=== PATIENT | male | born 1975 | race Caucasian/White ===

== ENCOUNTER 2016-08-05 20:13 | Emergency (ER) | payer SELFPAY ==
[2016-08-05] MEDS ORDERED: ONDANSETRON 4 MG/2 ML VIAL IVP ONE (21:19)
[2016-08-05] MEDS ORDERED: NS 1,000 ML IV ONE (21:19)
[2016-08-05 21:21] VITALS: RESP 16
--- NOTE | 2016-08-05 21:21 | EDPHY ---
H & P Stated Complaint: flu SnS for 3 weeks, out of psych and HTN meds for 3 weeks HPI/ROS: CHIEF COMPLAINT: Headache, malaise, confusion, sinus pain HISTORY OF PRESENT ILLNESS: several weeks duration of "flu-like" symptoms. Gradual onset. Constant duration. He feels that it is possibly related to the lack of his multiple medications as he lost his insurance. The headache is primarily frontal and over the maxillary regions. There is no neck pain or stiffness. No fever or chills. He also reports some cough, congestion, runny nose, body aches and generalized malaise. He has no chest pain or shortness of breath. No urinary complaints. No abdominal pain. No unilateral complaints. No altered mentation per the family member at bedside. No particular modifying factors for this despite taking multiple vedx-ast-ewcbiyo medications. REVIEW OF SYSTEMS: Ten systems reviewed and are negative unless otherwise noted in the HPI EXAMINATION General Appearance: Alert, no distress Head: normocephalic, atraumatic . No outward signs of trauma. Eyes: Pupils equal and round, no conjunctival pallor or injection ENT, Mouth: Mucous membranes moist . Uvula midline. No erythema, edema or lesions. Tenderness to palpation of the frontal and maxillary sinuses. Neck: Normal inspection, supple, non-tender . Respiratory: Lungs are clear to auscultation Cardiovascular: Regular rate and rhythm Gastrointestinal: Abdomen is soft and nontender Back: non-tender, no bony abnormalities Neurological: A&O, Cranial nerves 2-12 grossly intact. nonfocal, Strength 5/ 5 in all limbs. Conversation appropriate.normal gait Skin: Warm and dry, no rash Extremities: Nontender, no pedal edema Psychiatric: Mood and affect normal DIFFERENTIAL DIAGNOSES: Including but not limited to influenza, mono, sinusitis, bronchitis, dehydration, hypokalemia, hyponatremia MDM: 9:20 p.m. multiple vague complaints without any focal complaints aside from sinusitis. He has no chest pain or shortness of breath. He does have a cough. He has a mild headache but only in the frontal maxillary sinuses. No neck pain or stiffness. No fever chills. He has auto discontinued his medications due to lack of insurance which is possibly contributing to his complaints. He is well- appearing in no acute distress. Does have mildly elevated blood pressure which we will monitor. Laboratory studies are pending at this time. As well as CT scan and chest x-ray. 10:30pm Notified by Radiology that the CT of the head reveals only a maxillary sinusitis. No acute findings of the brain parenchyma or otherwise. 11:30 p.m. laboratory studies, CT scan chest x-ray are all within normal limits. No acute findings of any kind. He is feeling much better. His blood pressure is well maintained. We had a very lengthy discussion regarding his chronic medications that he has been off of. Given the high blood pressure and his history of depression, I will resume atenolol Lexapro. additionally I will treat him for sinusitis with Augmentin and Flonase, he can take over-the- counter pseudoephedrine as needed. He has instructions to follow up with [facility] and he will attempt to see his primary care physician when he resumes his insurance. He is instructed to return to the ER should symptoms worsen, he has any weakness, altered mental status or syncope. He and his significant other at bedside are comfortable with this plan. SUPERVISION: This patient was independently evaluated without the aide of supervising physician. Source: Patient, Family Exam Limitations: No limitations - Personal History Current Tetanus/Diphtheria Vaccine: Unsure Current Tetanus Diphtheria and Acellular Pertussis (TDAP): Unsure - Medical/Surgical History Hx Asthma: No Hx Chronic Respiratory Disease: No Hx Diabetes: No Hx Cardiac Disease: Yes Hx Renal Disease: No Hx Cirrhosis: No Hx Alcoholism: No Hx HIV/AIDS: No Hx Splenectomy or Spleen Trauma: No Other PMH: PMH: ADHD, HTN, anxiety, NOHEMY, back injury. PSH: none - Social History Smoking Status: Light smoker Constitutional: Initial Vital Signs Temperature (C) 98.2 F 08/05/16 20:22 Heart Rate 96 08/05/16 20:22 Respiratory Rate 14 08/05/16 20:22 Blood Pressure 166/115 H 08/05/16 20:22 O2 Sat (%) 96 08/05/16 20:22 O2 Delivery Mode Room Air Allergies/Adverse Reactions: lisinopril Allergy (Unverified 05/04/16 12:57) Home Medications: Medication Instructions Recorded Adderall 10 mg Tablet TID 08/05/16 Amlodipine Besylate 08/05/16 Amoxicillin/Clavulanate Pot 875 mg PO BID #14 tab 01/25/17 [Augmentin 875 MG TAB (*)] Atenolol 08/05/16 Atenolol 50 mg PO DAILY #30 tablet 08/05/16 Ativan 1 mg 08/05/16 CLONAZEPAM 08/05/16 Escitalopram Oxalate [Lexapro] 10 mg PO DAILY #30 tab 08/05/16 Flexeril 08/05/16 Fluticasone Nasal [Flonase Nasal 1 sprays NASAL DAILY #1 mdi 08/05/16 [place] (RX)] Hydrochlorothiazide 08/05/16 Lexapro 20 mg 08/05/16 Percocet 7.5-325 mg Tablet 08/05/16 ZYRTEC 08/05/16 Medical Decision Making - Data Points Laboratory Results: Laboratory Results 08/05/16 21:00 08/05/16 21:00 08/05/16 08/05/16 21:20 21:00 WBC 7.95 10^3/uL (3.80-9.50) RBC 4.78 10^6/uL (4.40-6.38) Hgb 16.2 g/dL (13.7-17.5) Hct 44.4 % (40.0-51.0) MCV 92.9 fL (81.5-99.8) MCH 33.9 pg (27.9-34.1) MCHC 36.5 g/dL (32.4-36.7) RDW 13.3 % (11.5-15.2) Plt Count 346 10^3/uL (150-400) MPV 9.9 fL (8.7-11.7) Neut % (Auto) 53.9 % (39.3-74.2) Lymph % (Auto) 36.7 % (15.0-45.0) [place] % (Auto) 7.0 % (4.5-13.0) Eos % (Auto) 1.6 % (0.6-7.6) Baso % (Auto) 0.4 % (0.3-1.7) Nucleat RBC Rel Count 0.0 % (0.0-0.2) Absolute Neuts (auto) 4.28 10^3/uL (1.70-6.50) Absolute Lymphs (auto) 2.92 10^3/uL (1.00-3.00) Absolute Monos (auto) 0.56 10^3/uL (0.30-0.80) Absolute Eos (auto) 0.13 10^3/uL (0.03-0.40) Absolute Basos (auto) 0.03 10^3/uL (0.02-0.10) Absolute Nucleated RBC 0.00 10^3/uL (0-0.01) Immature Gran % 0.4 % (0.0-1.1) Immature Gran # 0.03 10^3/uL (0.00-0.10) Sodium 141 mEq/L (134-144) Potassium 4.3 mEq/L (3.5-5.2) Chloride 107 mEq/L (97-110) Carbon Dioxide 22 mEq/l (22-31) Anion Gap 12 mEq/L (8-16) BUN 9 mg/dL (7-23) Creatinine 0.9 mg/dL (0.7-1.3) Estimated GFR > 60 Glucose 89 mg/dL (70-100) Calcium 9.7 mg/dL (8.5-10.4) Total Bilirubin 0.8 mg/dL (0.1-1.4) Conjugated Bilirubin 0.3 mg/dL (0.0-0.5) Unconjugated Bilirubin 0.5 mg/dL (0.0-1.1) AST 51 IU/L (17-59) ALT 63 IU/L (21-72) Alkaline Phosphatase 86 IU/L (38-126) Creatine Kinase 155 IU/L (0-224) Total Protein 7.3 g/dL (6.3-8.2) Albumin 3.9 g/dL (3.5-5.0) Lipase 207.0 IU/L (23-300) Urine Color PALE YELLOW Urine Appearance CLEAR Urine pH 6.0 (5.0-7.5) Ur Specific [place] 1.002 (1.002-1.030) Urine Protein NEGATIVE (NEGATIVE) Urine Ketones NEGATIVE (NEGATIVE) Urine Blood NEGATIVE (NEGATIVE) Urine Nitrate NEGATIVE (NEGATIVE) Urine Bilirubin NEGATIVE (NEGATIVE) Urine Urobilinogen NEGATIVE EU (0.2-1.0) Ur Leukocyte Esterase NEGATIVE (NEGATIVE) Ur Culture Indicated? NOT INDICATED (NI) Urine Glucose NEGATIVE (NEGATIVE) Monoscreen NEGATIVE (NEGATIVE) Medications Given: Discontinued Medications Sodium Chloride (Ns) 1,000 mls @ 0 mls/hr IV ONCE ONE PRN Reason: Wide Open Stop: 08/05/16 21:20 Last Admin: 08/05/16 21:30 Dose: 1,000 mls Morphine Sulfate (Morphine) 4 mg IVP EDNOW ONE Stop: 08/05/16 21:20 Last Admin: 08/05/16 21:30 Dose: 4 mg Ondansetron HCl (Zofran) 4 mg IVP EDNOW ONE Stop: 08/05/16 21:20 Last Admin: 08/05/16 21:30 Dose: 4 mg Departure - Departure Disposition: Home, Routine, Self-Care Clinical Impression: History of depression Acute sinusitis Qualifiers: Sinusitis location: unspecified location Recurrence: not specified as recurrent Qualifier Code: (J01.90) Acute sinusitis, unspecified Headache Qualifiers: Headache type: unspecified Headache chronicity pattern: acute headache Intractability: not intractable Qualifier Code: (R51) Headache Hypertension Qualifiers: Hypertension type: essential hypertension Qualifier Code: (I10) Essential ( primary) hypertension Condition: Good Instructions: Sinusitis (ED), Hypertension (ED) Additional Instructions: resume medications as prescribed. A.m. not comfortable prescribing any further medications as the need to be monitored closely by primary care physician. Follow up with [facility] until you obtain the ability to follow up with her primary care physician. Return to ER for any worsening headache, syncope, confusion or dizziness. Referrals: Gee Deal MD [Primary Care Provider] - As per Instructions [facility] [Outside] - As per Instructions Prescriptions: Atenolol 50 mg PO DAILY #30 tablet Amoxicillin/Clavulanate Pot [Augmentin 875 MG TAB (*)] 875 mg PO BID #14 tab Fluticasone Nasal [Flonase Nasal [place] (RX)] 1 sprays NASAL DAILY #1 mdi Escitalopram Oxalate [Lexapro] 10 mg PO DAILY #30 tab
[2016-08-05 21:24] LABS: % IMMATURE GRANULYOCYTES 0.4 % (0.0-1.1); ABSOLUTE IMMATURE GRANULOCYTES 0.03 10^3/uL (0.00-0.10); ADD DIFF? NO; ADD MORPH? NO; ADD SCAN? NO; ATYPICAL LYMPHOCYTE FLAG 0 (0-99); FRAGMENT RBC FLAG 0 (0-99); HEMATOCRIT 44.4 % (40.0-51.0); HEMOGLOBIN 16.2 g/dL (13.7-17.5); LEFT SHIFT FLG 0 (0-99); LIPEMIA HEMOLYSIS FLAG 90 (0-99); MEAN CELL HEMOGLOBIN 33.9 pg (27.9-34.1); MEAN CELL HEMOGLOBIN CONCENTR. 36.5 g/dL (32.4-36.7); MEAN CELL VOLUME 92.9 fL (81.5-99.8); MEAN PLATELET VOLUME 9.9 fL (8.7-11.7); PLATELET CLUMPS FLAG 20 (0-99); PLATELET COUNT 346 10^3/uL (150-400); RED BLOOD CELL COUNT 4.78 10^6/uL (4.40-6.38); RED CELL DISTRIBUTION WIDTH 13.3 % (11.5-15.2)
[2016-08-05 21:28] LABS: COLOR PALE YELLOW; LEUKOCYTE ESTERASE,URINE NEGATIVE (NEGATIVE); NITRITE,URINE NEGATIVE (NEGATIVE)
[2016-08-05 21:38] LABS: ALANINE AMINOTRANSFERASE 63 IU/L (21-72); ALBUMIN 3.9 g/dL (3.5-5.0); ALKALINE PHOSPHATASE 86 IU/L (38-126); ANION GAP 12 mEq/L (8-16); ASPARTATE AMINOTRANSFERASE 51 IU/L (17-59); BILIRUBIN,TOTAL 0.8 mg/dL (0.1-1.4); BILIRUBIN-CONJUGATED 0.3 mg/dL (0.0-0.5); BILIRUBIN-UNCONJUGATED 0.5 mg/dL (0.0-1.1); CALCIUM 9.7 mg/dL (8.5-10.4); CARBON DIOXIDE 22 mEq/l (22-31); CHLORIDE 107 mEq/L (97-110); CREATININE 0.9 mg/dL (0.7-1.3); GLOMERULAR FILTRATION RATE > 60; GLUCOSE 89 mg/dL (70-100); POTASSIUM 4.3 mEq/L (3.5-5.2); SODIUM 141 mEq/L (134-144); TOTAL PROTEIN 7.3 g/dL (6.3-8.2)
--- NOTE | 2016-08-05 21:57 | CT ---
Noncontrast Head CT Indication: Headache. Technique: Standard noncontrast axial CT images of the head were performed. Dose reduction techniq ues were utilized. Findings: No intracranial hemorrhage, mass effect, swelling, or extraaxial fluid collection. The ve ntricles are normal caliber and midline. The bones appear unremarkable. Mucosal thickening and air-fluid level within the left maxillary sinus is compatible with acute sinus itis Impression: Normal noncontrast CT of the brain. Acute left maxillary sinusitis. Results called to. Dorian Barraza PA-C at the time of the interpretation.
--- NOTE | 2016-08-05 21:58 | DX ---
PA and lateral chest. August 05, 2016. Clinical History: Possible pneumonia. Comparison Study: None available. Findings: The lungs are clear. No pleural disease identified. Heart size is normal. Visualized osseous structures appear normal. Impression: Normal chest.
[2016-08-05 23:54] VITALS: BP 153/99; PULSE 79; TEMP 98.6; O2SAT 91
[2016-08-05] MEDS ORDERED: OXYCODONE/APAP 5/325MG PREPACK#4 BTL TAKEHOME ONE (23:55)
[2016-08-06] MEDS ORDERED: ATENOLOL 25 MG TAB PO ONE (00:06)
[2016-08-06] MEDS ORDERED: AMOXICILLIN/CLAVULANATE POT 875/125 MG TAB PO ONE (00:06)
== END 2016-08-06 00:33 | disposition home or self-care (01) ==
DX: J01.90 Acute sinusitis, unspecified (principal); I10 Essential (primary) hypertension; F17.200 Nicotine dependence, unspecified, uncomplicated; Z86.59 Personal history of other mental and behavioral disorders
CPT/HCPCS: 96374; J2405